=== PATIENT | male | born 1965 | race Caucasian/White ===

== ENCOUNTER 2017-01-15 13:52 | Emergency (ER) | payer OTHER ==
[2017-01-15 14:02] VITALS: PULSE 95
[2017-01-15] MEDS ORDERED: ACETAMINOPHEN 500 MG TAB PO ONE (14:03)
--- NOTE | 2017-01-15 15:11 | EDPHY ---
H & P Stated Complaint: flu symptoms x2 days HPI/ROS: CHIEF COMPLAINT: "2 days of fever nonstop" HISTORY OF PRESENT ILLNESS: The patient is a 51 y/o male complaining of a 2-day history of productive cough and fever. He developed a headache, cough, and sore throat 2 days ago that was soon followed by a fever. His fever this morning was 39.7C. He has been using Advil for his fever and his last dose was one hour ago. He denies rhinorrhea, myalgias, vomiting, diarrhea, abdominal pain, or earache. He did not get a flu vaccination this season. He denies pertinent medical history. He is not experiencing chest pain or shortness of breath. REVIEW OF SYSTEMS: A ten point review of systems was performed and is negative with the exception of the items mentioned in the HPI. Source: Patient Exam Limitations: No limitations - Medical/Surgical History PMH: Denies any prior medical history or surgeries. Does take vitamin supplements. Hx Asthma: No Hx Chronic Respiratory Disease: No Hx Diabetes: No Hx Cardiac Disease: No Hx Renal Disease: No Hx Cirrhosis: No Hx Alcoholism: No Hx HIV/AIDS: No Hx Splenectomy or Spleen Trauma: No Other PMH: denies - Family History Significant Family History: No pertinent family hx - Social History Smoking Status: Never smoked Additional Social History: Nonsmoker. Glass of wine dialy. No illicit drugs. Describes himself as active. Works for school district locally. - Physical Exam Exam: General Appearance: Alert. Vital signs reviewed. T 38.2. Eyes: Pupils equal and round, no conjunctival injection, no discharge. Anicteric. ENT, Mouth: Mucous membranes are moist, mild pharyngeal erythema, no edema or exudates. Neck: No lymphadenopathy, supple, no meningeal signs. Respiratory: Lungs are clear to auscultation; no wheezes, rales, or rhonchi. Cardiovascular: Regular rate and rhythm; no murmur, rub, or gallop. Gastrointestinal: Abdomen is soft and nontender, no masses or organomegaly, bowel sounds normal. Skin: Warm to the touch, dry, no rashes on exposed skin, normal color. Back: Nontender to palpation over the thoracolumbar spine. No CVAT. Extremities: No lower extremity edema, no calf tenderness or swelling. Neurological: Alert and oriented. Moving all four extremities easily and equally. Psychiatric: Normal affect. Constitutional: Initial Vital Signs Temperature (C) 38.2 C 01/15/17 13:59 Heart Rate 95 01/15/17 13:59 Respiratory Rate 18 01/15/17 13:59 Blood Pressure 115/81 H 01/15/17 13:59 O2 Sat (%) 97 01/15/17 13:59 O2 Delivery Mode Room Air Allergies/Adverse Reactions: No Known Allergies Allergy (Unverified 01/15/17 13:59) Home Medications: Medication Instructions Recorded NK [No Known Home Meds] 01/15/17 Medical Decision Making ED Course/Re-evaluation: Study: Chest x-ray Indication: Cough, fever Results: Chest x-ray was obtained. The results of the study are normal. The study was read by the radiologist, Dr. Reynolds. I viewed the images myself on the PACS system. Signs and symptoms of influenza, out of the window for benefit from antivirals. CXR negative for infiltrate-no hypoxia. I am recommending symptomatic treatment. Danger signs that should prompt return for re-evaluation reviewed. Differential Diagnosis: DDx includes but is not limited to influenza, pneumonia, bronchitis, sinusitis, and pharyngitis. - Data Points Medications Given: Discontinued Medications Acetaminophen (Tylenol) 1,000 mg PO EDNOW ONE Stop: 01/15/17 14:04 Last Admin: 01/15/17 14:20 Dose: 1,000 mg Departure - Departure Disposition: Home, Routine, Self-Care Clinical Impression: Influenza, Viral syndrome Condition: Good Instructions: Influenza (ED), Viral Syndrome (ED) Additional Instructions: 1. Alternate Tylenol and ibuprofen while symptoms are present, not to exceed one week. See dosing instructions below. 2. Increase fluid intake and rest. 3. Keep minimal contact with others while you have a fever as you are contagious. 4. Practice good hand hygiene by washing your hands frequently. 5. You can try gypsy cold care teas for sore throat and cough. 6. Follow up with your primary care provider for symptoms not improved over the next 2 weeks. Adult Pain & Fever Control: We recommend Acetaminophen (Tylenol) and Ibuprofen (Motrin,Advil) for pain and fever control. When fever is high or pain severe, both drugs can be used at the same time, but at different intervals. Please note the time differences. Your dose is: Acetaminophen 650mg every 4 to 6 hours Ibuprofen 600mg every 6-8 hours with food Note: do not take Acetaminophen with Hydrocodone (Vicodin, Lortab) or Oxycodone (Percocet). These medications also contain Acetaminophen. No more than 3000mg of Acetaminophen should be taken in 24 hours (for an adult). Referrals: JALEESA,DA [Other] - As per Instructions Report Scribed for: Zara England Report Scribed by: April Christopher Date of Report: 01/15/17 Time of Report: 15:18 Physician Review and Approval Statement: 01/15/17 15:11 Portions of this note were transcribed by the medical cash poster. I, Dr. Zara England, personally performed the history, physical exam, and medical decision- making; and confirmed the accuracy of the information in the transcribed note.
[2017-01-15 15:37] VITALS: BP 111/79; RESP 16; TEMP 99.7; O2SAT 95
== END 2017-01-15 15:37 | disposition home or self-care (01) ==
DX: J11.1 Influenza due to unidentified influenza virus with other respiratory manifestations (principal); B34.9 Viral infection, unspecified